=== PATIENT | male | born 1995 | race Caucasian/White ===

== ENCOUNTER 2017-07-18 08:02 | Emergency (ER) | payer SELFPAY ==
[2017-07-18] MEDS ORDERED: NORMAL SALINE 1000 ML 1,000 ML IV PRN (09:13)
--- NOTE | 2017-07-18 09:19 | ER Document Report ---
ED GI/ - General Information source: Patient TRAVEL OUTSIDE OF THE [place] IN LAST 30 DAYS: No - HPI Patient complains to provider of: Diarrhea, Vomiting Associated symptoms: Other - see above <LAMAR SCHWARTZ - Last Filed: 07/18/17 09:19> <YOBANI MARAVILLA - Last Filed: 07/18/17 14:10> - General Chief Complaint: Nausea/Vomiting/Diarrhea Stated Complaint: NAUSEA VOMITING DIARRHEA Time Seen by Provider: 07/18/17 09:03 Notes: Patient is a 21 year old male who presents to the ED with complaints of nausea, vomiting and diarrhea with onset last night around 2300. Patient states prior to this he had constipation for 4 days. Patient has a decreased appetite and oral intake. Patient has some epigastric pain and some right shoulder pain since vomiting. Patient has not been around anyone that has been sick. Patient denies a fever. Patient denies any medical history, surgical history, allergies and is not on any daily medication. (LAMAR SCHWARTZ) Past Medical History - General Information source: Patient - Social History Smoking Status: Current Every Day Smoker Chew tobacco use (# tins/day): No Frequency of alcohol use: None Drug Abuse: None Family History: Reviewed & Not Pertinent Patient has suicidal ideation: No Patient has homicidal ideation: No Renal/ Medical History: Denies: Hx Peritoneal Dialysis <LAMAR SCHWARTZ - Last Filed: 07/18/17 09:19> Review of Systems - Review of Systems Constitutional: See HPI. denies: Fever EENT: No symptoms reported Cardiovascular: No symptoms reported Respiratory: No symptoms reported Gastrointestinal: See HPI, Abdominal pain, Diarrhea, Nausea, Vomiting, Constipation, Poor appetite, Poor fluid intake Genitourinary: No symptoms reported Male Genitourinary: No symptoms reported Musculoskeletal: See HPI, Joint pain - right shoulder Skin: No symptoms reported Hematologic/Lymphatic: No symptoms reported Neurological/Psychological: No symptoms reported <LAMAR SCHWARTZ - Last Filed: 07/18/17 09:19> Physical Exam - General General appearance: Appears well, Alert In distress: None - HEENT Head: Normocephalic, Atraumatic Eyes: Normal Extraocular movements intact: Yes Pupils: PERRL - Respiratory Respiratory status: No respiratory distress Chest status: Nontender Breath sounds: Normal Chest palpation: Normal - Cardiovascular Rhythm: Regular Heart sounds: Normal auscultation Murmur: No - Abdominal Inspection: Other - dull percussion Distension: No distension Bowel sounds: Normal Tenderness: Nontender - Back Back: Normal - Extremities General upper extremity: Normal inspection, Normal ROM General lower extremity: Normal inspection, Normal ROM - Neurological Neuro grossly intact: Yes - Psychological Associated symptoms: Normal affect, Normal mood - Skin Skin Temperature: Warm Skin Moisture: Dry Skin Color: Normal <LAMAR SCHWARTZ - Last Filed: 07/18/17 09:19> - Vital signs Vitals: Temp Pulse BP Pulse Ox 98.7 F 108 H 119/77 97 07/18/17 08:08 07/18/17 08:08 07/18/17 08:08 07/18/17 08:08 Course - Laboratory Result Diagrams: 07/18/17 08:58 07/18/17 08:58 <LAMAR SCHWARTZ - Last Filed: 07/18/17 09:19> - Laboratory Result Diagrams: 07/18/17 08:58 07/18/17 08:58 <YOBANI MARAVILLA - Last Filed: 07/18/17 14:10> - Re-evaluation Re-evalutation: 07/18/17 14:08 Patient has had 3 L of normal saline so far, his urine is still quite concentrated appearing. He is feeling much better and has no nausea at this time. He is also anxious to get going as they are returning to [place] by car today. There has been no diarrhea. (YOBANI MARAVILLA) - Vital Signs Vital signs: Temp Pulse Resp BP Pulse Ox 98.9 F 104 H 20 123/73 97 07/18/17 08:30 07/18/17 08:30 07/18/17 08:14 07/18/17 08:30 07/18/17 08:30 - Laboratory Laboratory results interpreted by me: 07/18/17 07/18/17 08:58 08:58 WBC 11.3 H RBC 6.23 H Hgb 17.7 H Hct 51.9 H Seg Neuts % (Manual) 82 H Band Neutrophils % 15 H Lymphocytes % (Manual) 1 L Monocytes % (Manual) 2 L Abs Neuts (Manual) 11.0 H Abs Lymphs (Manual) 0.1 L Glucose 131 H Total Bilirubin 1.5 H Direct Bilirubin 0.5 H Discharge <LAMAR SCHWARTZ - Last Filed: 07/18/17 09:19> <YOBANI MARAVILLA - Last Filed: 07/18/17 14:10> - Discharge Clinical Impression: Nausea, vomiting and diarrhea Condition: Stable Disposition: HOME, SELF-CARE Additional Instructions: Gastroenteritis: You most likely have gastroenteritis. This is an irritation of the stomach and intestinal tract. It's usually caused by a virus, but can also be caused by bacteria, toxins that cause food poisoning, or excessive alcohol intake. Symptoms may include fever, painful abdominal cramps, nausea, vomiting , and diarrhea. Start with small amounts (two to six ounces) of clear liquids (soft drinks , herb teas, broth, etc). Try to take fluids frequently even if you are vomiting, to prevent dehydration. When liquids are being consumed successfully , advance to small amounts of bland food (mashed potato, toast) for 6 - 12 hours. Gastroenteritis rarely requires medication. It goes away by itself. Use good handwashing so you don't spread germs. Wash underwear in very hot water. If symptoms are severe, talk to the doctor. Call your physician if blood appears in your vomitus or stool, if vomiting lasts longer than 24 hours, if the abdominal pain worsens or becomes localized to one area, or if you develop high fever. TAKE THE MEDICATION PRESCRIBED FOR NAUSEA. DRINK SMALL SIPS OF COOL CLEAR LIQUIDS. REST. FOLLOW UP WITH A LOCAL MEDICAL DOCTOR IF NOT IMPROVING. RETURN TO THE EMERGENCY ROOM IF ANY NEW OR WORSENING SYMPTOMS. Prescriptions: Promethazine HCl [Phenergan 25 mg Tablet] 25 - 50 mg PO ASDIR PRN #12 tablet PRN Reason: Scribe Attestation: 07/18/17 10:27 I personally performed the services described in the documentation, reviewed and edited the documentation which was dictated to the scribe in my presence, and it accurately records my words and actions. (YOBANI MARAVILLA) Carol[employer] Documentation - Scribe Written by Enma:: enma Bell, 07/18/2017, 09 acting as scribe for :: Prince <LAMAR SCHWARTZ - Last Filed: 07/18/17 09:19>
[2017-07-18 09:26] LABS: HEMATOCRIT 51.9 % (37.9-51.0); HEMOGLOBIN 17.7 g/dL (13.5-17.0); HGB HCT DIFFERENCE 1.2; MEAN CORPUSCULAR HEMOGLOBIN 28.3 pg (27.0-33.4); MEAN CORPUSCULAR VOLUME 83 fl (80-97); RED BLOOD COUNT 6.23 10^6/uL (4.35-5.55); RED CELL DISTRIBUTION WIDTH 12.9 % (11.5-14.0); WHITE BLOOD COUNT 11.3 10^3/uL (4.0-10.5)
[2017-07-18 09:35] LABS: AMORPHOUS SEDIMENT,URINE TRACE /HPF; APPEARANCE,URINE CLOUDY; BILIRUBIN,URINE NEGATIVE (NEGATIVE); GLUCOSE, URINE NEGATIVE (NEGATIVE); KETONES,URINE NEGATIVE (NEGATIVE); LEUKOCYTE ESTERASE,URINE NEGATIVE (NEGATIVE); NITRITE,URINE NEGATIVE (NEGATIVE); PROTEIN,URINE NEGATIVE (NEGATIVE); URINE SPECIFIC GRAVITY 1.031; UROBILINOGEN,URINE NEGATIVE mg/dL (<2.0)
[2017-07-18 09:46] LABS: ALANINE AMINOTRANSFERASE 40 U/L (21-72); ALBUMIN 4.9 g/dL (3.5-5.0); ALKALINE PHOSPHATASE 95 U/L (38-126); ANION GAP 12 (5-19); ASPARTATE AMINO TRANSFERASE 31 U/L (17-59); BILIRUBIN,DIRECT 0.5 mg/dL (0.0-0.4); BILIRUBIN,TOTAL 1.5 mg/dL (0.2-1.3); BLOOD UREA NITROGEN 18 mg/dL (7-20); CARBON DIOXIDE 26 mmol/L (22-30); CHLORIDE 102 mmol/L (98-107); GLUCOSE 131 mg/dL (75-110); LIPASE 64.3 U/L (23-300); POTASSIUM 4.2 mmol/L (3.6-5.0); SODIUM 140.4 mmol/L (137-145); TOTAL PROTEIN 7.8 g/dL (6.3-8.2)
[2017-07-18 09:54] LABS: BAND NEUTROPHILS % (MANUAL) 15 % (3-5); BASOPHILS % (MANUAL) 0 % (0-2); EOSINOPHILS % (MANUAL) 0 % (0-6); LYMPHOCYTES % (MANUAL) 1 % (13-45); RBC MORPHOLOGY COMMENT NORMO-CYTIC/CHROMIC; TOTAL CELLS COUNTED 100; TOXIC GRANULATION 1+; TOXIC VACUOLATION PRESENT
[2017-07-18] MEDS ORDERED: DIPHENHYDRAMINE HCL 50 MG/ML VIAL IV ONE (11:42)
[2017-07-18] MEDS ORDERED: ONDANSETRON HCL INJ/PF 4 MG/2 ML SDV IV ONE (11:42)
[2017-07-18] MEDS ORDERED: NORMAL SALINE 1000 ML 1,000 ML IV ONE (11:42)
[2017-07-18] MEDS ORDERED: DEXTROSE 5%-LACTATED RINGERS 1,000 ML IV ONE (13:11)
[2017-07-18] MEDS ORDERED: ONDANSETRON ODT 4 MG TAB (6 TAB/DSPK) PO PRN (14:11)
[2017-07-18 14:58] VITALS: BP 127/49
[2017-07-19 16:13] LABS: PATH REVIEW PATHOLOGIST REVIEWED
== END 2017-07-18 15:01 | disposition home or self-care (01) ==
LOC: ER 08:02
DX: R11.2 Nausea with vomiting, unspecified (principal); R19.7 Diarrhea, unspecified; R10.13 Epigastric pain; K59.00 Constipation, unspecified; F17.200 Nicotine dependence, unspecified, uncomplicated
CPT/HCPCS: 99284; 96361; 96375; 96365; 36415; 83690; 85025; 80053; 81001; J1200; J2405; J7030